=== PATIENT | female | born 1925 | race Caucasian/White ===

== ENCOUNTER 2016-09-28 17:13 | Emergency (ER) | payer OTHER ==
--- NOTE | 2016-09-28 18:14 | PROVIDER DOCUMENTATION ---
HPI-Respiratory General <Russell Shahid - Last Filed: 09/28/16 19:50> - General Source: patient - History of Present Illness-Resp Quality of Pain: reports: none Severity in ED: reports: mild Onset/Duration: reports: 2 days ago Timing: reports: still present Exposure: reports: unknown cause Cough Quality/Degree: reports: mild Episode Frequency: no prior episodes Current Respiratory Medication Therapy: Initiated none Modifying Factors: improves with: exertion (worsens) Similar Symptoms Previously?: No Recently seen or treated by another doctor?: No <Shante Mullins - Last Filed: 09/28/16 19:54> - General Chief Complaint: Cough Stated Complaint: SOB Time Seen by Provider: 09/28/16 18:04 Allergies/Adverse Reactions: Patient Allergies Allergy/AdvReac Type Severity Reaction Status Date / Time No Known Allergies Allergy Verified 11/30/15 14:18 Home Medications: Home Medication List Medication Instructions Recorded Confirmed Last Taken Type Levothyroxine [Synthroid] 25 microgm PO DAILY 05/07/14 07/13/16 10/10/15 History Glipizide 5 mg PO DAILY #0 tablet 05/09/14 07/13/16 10/10/15 Rx Carisoprodol [Soma] 350 mg PO HS 08/14/15 07/13/16 10/10/15 History Hydrochlorothiazide [Microzide] 12.5 mg PO DAILY 08/14/15 07/13/16 10/10/15 History Gabapentin 300 mg PO Q8H #90 10/13/15 07/13/16 10/10/15 Rx Famotidine 20 mg PO BID 07/13/16 07/13/16 Unknown History Hydroxyzine 25 mg PO QHS 07/13/16 07/13/16 Unknown History Amlodipine [Norvasc] 5 mg PO DAILY #0 07/18/16 07/13/16 Unknown Rx Hydrocodone/APAP 10 mg/325 mg 1 each PO Q6H PRN PRN #30 tablet 07/18/16 Unknown Rx [Geary-10] Rivaroxaban [Xarelto] 10 mg PO Q24H #30 tablet 07/18/16 Unknown Rx - History of Present Illness-Resp Nature of Presenting Problem: 89 yo female presents to ER with c/o nonproductive cough for the past couple of days. She states that the home health nurse from [facility] stated that she heard crackles and wanted patient to come to ER to r/o pneumonia. She denies chest pain/fever/chills. (SusannaOctober.) Review of Systems - Adult - REVIEW OF SYSTEMS - ADULT Constitutional: reports: no symptoms reported Eyes: reports: no symptoms reported Ears, Nose, Mouth & Throat: reports: no symptoms reported Cardiovascular: reports: no symptoms reported Respiratory: reports: see HPI, cough, shortness of breath Gastrointestinal: reports: no symptoms reported Genitourinary: reports: no symptoms reported Musculoskeletal: reports: no symptoms reported Integumentary: reports: no symptoms reported Neurological: reports: no symptoms reported Psychiatric: reports: no symptoms reported Endocrine: reports: no symptoms reported Hematologic/Lymphatic: reports: no symptoms reported Allergic/Immunologic: reports: no symptoms reported All Other Systems: Reviewed and Negative <SusannaOctober. - Last Filed: 09/28/16 19:54> Past History - Adult - PAST MEDICAL HISTORY-ADULT Review of Records: reports: Old Records Reviewed, Nursing Assessment Review, Medications Reviewed, Social history reviewed & non-contributory. Major Childhood Illnesses: reports: denies history Cardiovascular: reports: HTN, hyperlipidemia Respiratory: reports: denies history Gastrointestinal: reports: denies history Obstetrical/Gynecological: reports: denies history Genitourinary: reports: kidney disease Musculoskeletal: reports: denies history Neurological: reports: denies history Endocrine/Immune: reports: Diabetes, thyroid disorder Other Conditions: reports: denies history - PRIOR SURGERIES/PROCEDURES Surgical/Procedure History: reports: cholecystectomy, hysterectomy - IMMUNIZATION STATUS Childhood Immunizations: See Nurse Assessment Flu Vaccine: See Nurse Assessment - FAMILY HISTORY Family History: reviewed, not pertinent - SOCIAL HISTORY Smoking: denies, non-smoker Substance Use: none/never, denies Living Situation: family <SusannaOctober. - Last Filed: 09/28/16 19:54> Physical Exam-General - PHYSICAL EXAM-ADULT Initial Vital Signs Reviewed: Yes - CONSTITUTIONAL General Appearance: appears well, alert, no apparent distress - EYES Eyes: PERRL/EOMI, pink conjunctivae - HEAD, EARS, NOSE, MOUTH & THROAT HENMT: normocephalic/atraumatic, moist mucous membranes, normal ENT inspection - RESPIRATORY Respiratory: no respiratory distress, crackles (bilateral lower lung givens) - CARDIOVASCULAR Cardiovascular: normal peripheral pulses, regular rate, rhythm - GASTROINTESTINAL (ABDOMEN) Abdominal Exam: soft - MUSCULOSKELETAL Back Exam: normal inspection Extremity: normal inspection, no pedal edema Peripheral Pulses: radial (R): 2+, radial (L): 2+, dorsalis-pedis (R): 2+, dorsalis-pedis (L): 2+ - SKIN Integumentary: normal color, normal turgor, warm/dry - NEUROLOGIC Neurologic: grossly normal - PSYCHIATRIC Psych/Mental Status: normal mood/affect, normal thought content, normal thought process, oriented x 3 <SusannaOctober. - Last Filed: 09/28/16 19:54> Progress - EKG 1 Time of EKG reading by physician:: 19:51 EKG Read and Signed by:: Matthieu Moreno Rate: 59 Rhythm: SINUS BRADYCARDIA [place]: left QRS: RBB ME Interval: normal ST Wave: normal <Russell Shahid - Last Filed: 09/28/16 19:50> - XRAY 1 XRAY Study: Chest Impression: Normal (no infiltrates) XRAY Interpretation: Interpreted by Dr. Moreno <Susanna. - Last Filed: 09/28/16 19:54> Departure <Russell Shahid - Last Filed: 09/28/16 19:50> - Departure Time of Disposition Order: 19:54 Certified Medical Emergency: Emergent <Susanna. - Last Filed: 09/28/16 19:54> - Departure DIAGNOSIS: Bibasilar crackles, Cough Disposition: HOME 01 Condition: Good Additional Instructions: Follow up with primary care doctor for worsening symptoms. Continue home medications as prescribed. ED Follow Up Instructions: You have been treated by a care provider in the Emergency Department. These instructions are being provided to you so you can have an understanding of how to care for yourself upon discharge. Upon discharge from the Emergency Department, you are responsible for making arrangements for follow-up care by a physician of your choice. Take all prescribed medications as directed. Return to the Emergency Department immediately for any new or worsening symptoms. You may call the Physician Referral phone number at [phone] to obtain a list of Physicians who are taking new patients. Referrals: Nichole Andre MD [Primary Care Provider] - Attestation - Physician/ SHEYLA Attestation Patient care was provided by Advanced Practice Provider:: Yes Advanced Practice Provider:: Shante Mullins Advanced Practice Provider documentation review:: The Mid-level provider documentation, treatment plan and medical decision making was reviewed by the physician who agrees with all treatment and medical decision making by the MLP. <Shante Mullins - Last Filed: 09/28/16 19:54> Physician Attestation
[2016-09-28 18:38] LABS: URINE SOURCE CLEAN CATCH
[2016-09-28 18:40] LABS: MANUAL DIFF NEEDED? NO
[2016-09-28 18:50] LABS: BILIRUBIN URINE NEGATIVE (NEGATIVE); BLOOD URINE NEGATIVE (NEGATIVE); CLARITY CLEAR (CLEAR); COLOR YELLOW; GLUCOSE URINE NEGATIVE (NEGATIVE); LEUKOCYTES URINE TRACE (NEGATIVE); NITRITE URINE NEGATIVE (NEGATIVE); PH URINE 6.5; PROTEIN URINE TRACE mg/dL (NEGATIVE); UROBILINOGEN URINE NORMAL
[2016-09-28 18:50] LABS: BASO% 0.6 % (0.0-0.8); EOS% 6.4 % (0.0-10.0); HEMATOCRIT 35.6 % (37.0-47.0); HEMOGLOBIN 11.5 g/dL (12.0-16.0); IMM GRAN# 0.01 X1000 (0.0-0.04); IMM GRAN% 0.2 % (0.0-0.5); LYMPH% 21.3 % (20.5-51.1); MCH 28.5 PG (27-31); MCHC 32.3 g/dL (33-37); MCV 88.1 FL (81-99); MONO# 0.33 X1000 (0.11-0.59); MPV 10.8 FL (7.4-10.4); NEUT% 64.5 % (42.2-75.2); PLT 202 X1000 (130-400); RBC 4.04 XMIL (4.2-5.4)
[2016-09-28 18:51] LABS: URINE CAST NONE SEEN /LPF; URINE CRYSTAL NONE SEEN /HPF; URINE CULTURE PL NEEDED? YES; URINE EPITHELIAL CELLS <10 /HPF (<10); URINE WBC <10 /HPF (<10)
[2016-09-28 19:13] LABS: ALBUMIN 3.8 g/dL (3.5-5.0); CALCIUM 9.9 mg/dL (8.8-10.2); POTASSIUM 3.9 mmol/L (3.5-5.1); TOTAL BILIRUBIN 0.2 mg/dL (0.20-1.00); TOTAL PROTEIN 6.6 g/dL (6.3-8.3)
[2016-09-28 20:16] VITALS: BP 154/71
--- NOTE | 2016-09-28 20:17 | EKG Report ---
Test Performed on : 09/28/2016 7:39:55 PM Test Reason : shortness of breath Blood Pressure : / mmHG Vent. Rate : 059 BPM Atrial Rate : 059 BPM P-R Int : 162 ms QRS Dur : 104 ms QT Int : 480 ms P-R-T Axes : 023 -45 052 degrees QTc Int : 475 ms Sinus bradycardia. 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
--- NOTE | 2016-09-29 07:55 | Diag Imaging Result Document ---
PROCEDURE NAME: CHEST-2 VIEWS - 09/28/2016 FRONTAL AND LATERAL CHEST, TWO VIEWS: COMPARISON: 07/13/2016. FINDINGS: The lungs are well expanded. The heart is not enlarged. The vessels are not distended. There are no infiltrates. No pleural effusions. Cement is present within two lower thoracic vertebrae. There are several lower thoracic and upper lumbar vertebrae with compression fractures. The appearance is similar to 11/30/2015. IMPRESSION: No pneumonia. No acute abnormality.
== END 2016-09-28 20:16 | disposition home or self-care (01) ==
LOC: P.ED 17:13
DX: R91.8 Other nonspecific abnormal finding of lung field (principal); R05 Cough; R06.02 Shortness of breath; I10 Essential (primary) hypertension; E78.5 Hyperlipidemia, unspecified; E11.9 Type 2 diabetes mellitus without complications; E07.9 Disorder of thyroid, unspecified; Z79.899 Other long term (current) drug therapy; Z79.01 Long term (current) use of anticoagulants
CPT/HCPCS: 71020; 80053; 81001; 83880; 85025; 87088; 87804; 93005; 99284